=== PATIENT | male | born 1990 | race Caucasian/White ===

== ENCOUNTER 2016-10-04 03:13 | Emergency (ER) | payer SELFPAY ==
[~2016-10-04] VITALS: Ht 180.3 cm; Wt 74.0 kg
[2016-10-04 07:36] VITALS: BP 140/91
== END 2016-10-04 12:50 | disposition home or self-care (01) ==
LOC: ER 07:24
DX: Z59.0 Homelessness (principal)
CPT/HCPCS: 99281